=== PATIENT | female | born 1990 | race Caucasian/White ===

== ENCOUNTER 2022-03-21 17:01 | Emergency (ER) | payer BC ==
[2022-03-21 17:22] VITALS: BP 128/76; PULSE 79
[2022-03-21 19:10] LABS: ANION GAP 10.2 mEq/L (7-13); CHLORIDE,CL 103 mmol/L (98-107); SODIUM,NA 137 mmol/L (136-145)
[2022-03-21 19:13] LABS: ESTIMATED GFR 119 mL/min (>=60)
== END 2022-03-21 20:39 | disposition home or self-care (01) ==
LOC: DL.ED 17:01
DX: O99.891 Other specified diseases and conditions complicating pregnancy (principal); R07.89 Other chest pain; Z3A.16 16 weeks gestation of pregnancy; Z20.822 Contact with and (suspected) exposure to COVID-19
CPT/HCPCS: 36415; 71045; 80053; 82150; 83605; 83690; 83735; 84443; 84484; 85025; 86140; 93005; 99285; U0002

== ENCOUNTER 2022-08-30 00:15 | Inpatient (IN) | payer BC ==
[2022-08-30] MEDS ORDERED: Acetaminophen 325 MG Tab PO PRN ×2 (09:38)
[2022-08-30] MEDS ORDERED: Sodium Chloride 0.9% 10 ML Syringe FLUSH PRN (09:38)
[2022-08-30] MEDS ORDERED: Methylergonovine 0.2 MG/1 ML Amp IM PRN (09:38)
[2022-08-30] MEDS ORDERED: Lidocaine 1% 30 ML SDV INJECT PRN (09:38)
[2022-08-30] MEDS ORDERED: Carboprost Tromethamine 250 MCG/1 ML Amp IM PRN (09:38)
[2022-08-30] MEDS ORDERED: Tranexamic Acid 1,000 MG in Sodium Chloride 0.9% 100 ML IV PRN (09:38)
[2022-08-30] MEDS ORDERED: Lactated Ringers 1,000 ML IV ONE (09:38)
[2022-08-30] MEDS ORDERED: Misoprostol 400 MCG (4 X 100 MCG TAB) RECTAL PRN (09:38)
[2022-08-30] MEDS ORDERED: Ondansetron 4 MG/2 ML SDV IVPUSH PRN (09:38)
[2022-08-30] MEDS ORDERED: Misoprostol 50 MCG (1/2 of 100 MCG) Tab VAG PRN (09:38)
[2022-08-30] MEDS ORDERED: Ropivacaine 200 MG in Premix Bag 1 BAG EPIDUR SCH (09:45)
[2022-08-30] MEDS ORDERED: Phenylephrine HCl In 0.9% NaCl 1 MG/10 ML Syringe IVPUSH PRN (09:45)
[2022-08-30] MEDS ORDERED: ePHEDrine 50 MG/ML SDV IVPUSH PRN (09:45)
[2022-08-30] MEDS ORDERED: Oxytocin/Normal Saline 30 UNIT/500 ML BAG IV SCH (09:45)
[2022-08-30] MEDS: Lactated Ringers 1,000 ML IV SCH (16:10)
[2022-08-30] MEDS: Misoprostol 25 MCG (1/4 of 100 MCG) Tab VAG PRN (16:53)
[2022-08-30] MEDS: Sodium Chloride 0.9% 10 ML Syringe FLUSH SCH (21:00)
[2022-08-30] MEDS: Oxytocin/Normal Saline 30 UNIT/500 ML BAG IV SCH (22:39)
[2022-08-31] MEDS ORDERED: hydrOXYzine HCl 25 MG Tab PO ONE ×2 (04:19→22:30)
[2022-08-31] MEDS: Misoprostol 25 MCG (1/4 of 100 MCG) Tab VAG PRN ×5 (05:45→22:41)
[2022-08-31] MEDS: Sodium Chloride 0.9% 10 ML Syringe FLUSH SCH ×2 (09:41→22:40)
[2022-09-01] MEDS: Lactated Ringers 1,000 ML IV SCH ×2 (04:48→19:35)
[2022-09-01] MEDS: Misoprostol 25 MCG (1/4 of 100 MCG) Tab VAG PRN (07:31)
[2022-09-01] MEDS: Sodium Chloride 0.9% 10 ML Syringe FLUSH SCH ×2 (09:00→21:00)
[2022-09-01] MEDS: Oxytocin/Normal Saline 30 UNIT/500 ML BAG IV SCH (13:11)
[2022-09-01] MEDS ORDERED: Bupivacaine 0.25% 10 ML SDV ONE (22:19)
[2022-09-01] MEDS ORDERED: fentaNYL 100 MCG/2 ML SDV ONE (22:19)
[2022-09-01] MEDS ORDERED: Phenylephrine HCl In 0.9% NaCl 1 MG/10 ML Syringe ONE (22:20)
[2022-09-01] MEDS ORDERED: ePHEDrine 50 MG/ML SDV ONE (22:20)
[2022-09-01] MEDS ORDERED: Phenylephrine HCl In 0.9% NaCl 1 MG/10 ML Syringe IVPUSH PRN (22:46)
[2022-09-01] MEDS ORDERED: ePHEDrine 50 MG/ML SDV IVPUSH PRN (22:46)
[2022-09-01] MEDS ORDERED: Ropivacaine 200 MG in Premix Bag 1 BAG EPIDUR SCH (23:00)
[2022-09-02] MEDS ORDERED: Ondansetron 4 MG/2 ML SDV ONE (04:41)
[2022-09-02] MEDS ORDERED: Dexamethasone 4 MG/ML SDV ONE (04:42)
[2022-09-02] MEDS ORDERED: Ketorolac 30 MG/ML SDV ONE (04:42)
[2022-09-02] MEDS ORDERED: Phenylephrine HCl In 0.9% NaCl 1 MG/10 ML Syringe ONE (04:42)
[2022-09-02] MEDS ORDERED: Oxytocin 10 Units/1 ML SDV ONE (04:42)
[2022-09-02] MEDS ORDERED: Lidocaine 2% with EPINEPHrine 1:200,000 20 ML SDV ONE (04:43)
[2022-09-02] MEDS ORDERED: SODIUM CHLORIDE 0.9% IV ONE (05:17)
[2022-09-02] MEDS ORDERED: ceFAZolin 2 GM Vial IV ONE (05:17)
[2022-09-02] MEDS ORDERED: ceFAZolin 2 GM Vial ONE (05:17)
[2022-09-02] MEDS ORDERED: Ketorolac 30 MG/ML SDV IVPUSH ONE (05:17)
[2022-09-02] MEDS ORDERED: Misoprostol 400 MCG (4 X 100 MCG TAB) ONE (05:17)
[2022-09-02] MEDS ORDERED: Tranexamic Acid 1,000 MG/10 ML Vial ONE (05:17)
[2022-09-02] MEDS ORDERED: OXYTOCIN IV ONE (05:17)
[2022-09-02] MEDS ORDERED: Ondansetron 4 MG/2 ML SDV IV ONE (05:17)
[2022-09-02] MEDS ORDERED: fentaNYL 100 MCG/2 ML SDV IV ONE (05:17)
[2022-09-02] MEDS ORDERED: Oxytocin 10 Units/1 ML SDV IV ONE (05:17)
[2022-09-02] MEDS ORDERED: Lidocaine 2% with EPINEPHrine 1:200,000 20 ML SDV INJECT ONE (05:17)
[2022-09-02] MEDS ORDERED: Dexamethasone 4 MG/ML SDV IV ONE (05:17)
[2022-09-02] MEDS ORDERED: Phenylephrine HCl In 0.9% NaCl 1 MG/10 ML Syringe IV ONE (05:17)
[2022-09-02] MEDS ORDERED: Morphine PF 10 MG/10 ML SDV IV ONE (05:17)
[2022-09-02] MEDS ORDERED: Bupivacaine 0.25% 10 ML SDV INJECT ONE (05:17)
[2022-09-02] MEDS ORDERED: Sodium Chloride 0.9% 100 ML ONE (05:19)
[2022-09-02] MEDS ORDERED: Oxytocin/Normal Saline 30 UNIT/500 ML BAG ONE (05:32)
[2022-09-02] MEDS: Lactated Ringers 1,000 ML IV SCH ×3 (06:11→22:27)
[2022-09-02] MEDS ORDERED: Acetaminophen/oxyCODONE 325-5 MG Tab PO PRN ×3 (06:21→06:27)
[2022-09-02] MEDS ORDERED: Ondansetron 4 MG/2 ML SDV IVPUSH PRN ×2 (06:21→06:27)
[2022-09-02] MEDS ORDERED: Methylergonovine 0.2 MG/1 ML Amp IM PRN ×2 (06:21→06:27)
[2022-09-02] MEDS ORDERED: ePHEDrine 50 MG/ML SDV IVPUSH PRN ×2 (06:21→06:27)
[2022-09-02] MEDS ORDERED: Tranexamic Acid 1,000 MG in Sodium Chloride 0.9% 100 ML IV PRN ×2 (06:21→06:27)
[2022-09-02] MEDS ORDERED: diphenhydrAMINE 50 MG/ML SDV IVPUSH PRN ×2 (06:21→06:27)
[2022-09-02] MEDS ORDERED: Carboprost Tromethamine 250 MCG/1 ML Amp IM PRN ×2 (06:21→06:27)
[2022-09-02] MEDS ORDERED: Ibuprofen 800 MG Tab PO PRN (06:21)
[2022-09-02] MEDS ORDERED: Acetaminophen 325 MG Tab PO PRN ×2 (06:21→06:27)
[2022-09-02] MEDS ORDERED: Misoprostol 400 MCG (4 X 100 MCG TAB) RECTAL PRN ×2 (06:21→06:27)
[2022-09-02] MEDS ORDERED: Naloxone 2 MG/2 ML Syringe IVPUSH PRN ×2 (06:21→06:27)
[2022-09-02] MEDS ORDERED: Docusate Sodium 100 MG Cap PO PRN (06:27)
[2022-09-02] MEDS ORDERED: Lactated Ringers 1,000 ML IV SCH (06:30)
[2022-09-02] MEDS ORDERED: Ketorolac 30 MG/ML SDV IVPUSH SCH (06:30)
[2022-09-02] MEDS: Oxytocin/Normal Saline 30 UNIT/500 ML BAG IV SCH (06:40)
[2022-09-02] MEDS ORDERED: Simethicone 80 MG Tab.Chew PO SCH (09:00)
[2022-09-02] MEDS ORDERED: Prenatal Multivitamin with Calcium/Folic Acid/Iron Tab PO SCH (09:00)
[2022-09-02] MEDS: Simethicone 80 MG Tab.Chew PO SCH ×4 (09:54→21:39)
[2022-09-02] MEDS: Ketorolac 30 MG/ML SDV IVPUSH SCH ×3 (11:43→23:45)
[2022-09-02] MEDS: Ferrous Sulfate 325 MG Tab PO SCH (11:44)
[2022-09-02] MEDS: Prenatal Multivitamin with Calcium/Folic Acid/Iron Tab PO SCH (11:44)
[2022-09-02] MEDS: Docusate Sodium 100 MG Cap PO PRN (11:44)
[2022-09-02] MEDS: ceFAZolin 1 GM Vial IVPUSH SCH ×2 (12:58→21:37)
[2022-09-03] MEDS: ceFAZolin 1 GM Vial IVPUSH SCH (07:22)
[2022-09-03] MEDS ORDERED: ceFAZolin 1 GM Vial IVPUSH SCH (07:30)
[2022-09-03] MEDS: Ferrous Sulfate 325 MG Tab PO SCH (08:57)
[2022-09-03] MEDS: Prenatal Multivitamin with Calcium/Folic Acid/Iron Tab PO SCH (08:57)
[2022-09-03] MEDS: Simethicone 80 MG Tab.Chew PO SCH ×4 (08:57→22:09)
[2022-09-03] MEDS: Docusate Sodium 100 MG Cap PO PRN ×2 (08:57→22:09)
[2022-09-03] MEDS: Acetaminophen/oxyCODONE 325-5 MG Tab PO PRN ×4 (09:28→22:08)
[2022-09-03] MEDS: Ibuprofen 800 MG Tab PO PRN ×2 (13:15→22:09)
[2022-09-04] MEDS: Acetaminophen/oxyCODONE 325-5 MG Tab PO PRN ×2 (06:23→11:01)
[2022-09-04] MEDS: Ibuprofen 800 MG Tab PO PRN (06:24)
[2022-09-04] MEDS: Ferrous Sulfate 325 MG Tab PO SCH (07:58)
[2022-09-04] MEDS: Docusate Sodium 100 MG Cap PO PRN (07:58)
[2022-09-04] MEDS: Simethicone 80 MG Tab.Chew PO SCH ×2 (07:59→13:40)
[2022-09-04] MEDS: Prenatal Multivitamin with Calcium/Folic Acid/Iron Tab PO SCH (07:59)
[2022-09-04 12:57] VITALS: BP 142/81; PULSE 79
== END 2022-09-04 14:05 | disposition home or self-care (01) | DRG 540 ==
LOC: DL.OB 05:24 → OBSVTOIN 09-02 05:24
PROVIDERS: ADMIT Family Medicine; ATTEND Family Medicine
PROC: 10D00Z1 Extraction of Products of Conception, Low, Open Approach (ICD-10-PCS; principal; 2022-09-02)
PROC: 3E0P7VZ Introduction of Hormone into Female Reproductive, Via Natural or Artificial Opening (ICD-10-PCS; 2022-09-02)
PROC: 3E033VJ Introduction of Other Hormone into Peripheral Vein, Percutaneous Approach (ICD-10-PCS; 2022-09-02)
PROC: 10907ZC Drainage of Amniotic Fluid, Therapeutic from Products of Conception, Via Natural or Artificial Opening (ICD-10-PCS; 2022-09-02)
DX: O13.4 Gestational [pregnancy-induced] hypertension without significant proteinuria, complicating childbirth (principal); O99.52 Diseases of the respiratory system complicating childbirth; J45.909 Unspecified asthma, uncomplicated; O99.12 Other diseases of the blood and blood-forming organs and certain disorders involving the immune mechanism complicating childbirth; D69.6 Thrombocytopenia, unspecified; R12 Heartburn; K59.00 Constipation, unspecified; O42.02 Full-term premature rupture of membranes, onset of labor within 24 hours of rupture; O76 Abnormality in fetal heart rate and rhythm complicating labor and delivery; O99.892 Other specified diseases and conditions complicating childbirth; O99.62 Diseases of the digestive system complicating childbirth; O99.214 Obesity complicating childbirth; O62.1 Secondary uterine inertia; Z37.0 Single live birth; Z79.82 Long term (current) use of aspirin; Z79.51 Long term (current) use of inhaled steroids; Z3A.39 39 weeks gestation of pregnancy
CPT/HCPCS: 01961; 01967; 36415; 51702; 82565; 82570; 82947; 84156; 84450; 84460; 84520; 85027; 85049; A9270-GY; J0690; J1885; J2405; J2590; J2795; J3490; J7120

== ENCOUNTER 2022-10-04 06:04 | Emergency (ER) | payer BC ==
[2022-10-04 06:23] VITALS: BP 126/79; PULSE 61
[2022-10-04 07:28] LABS: BASOPHILS PERCENT AUTO 0.2 % (0.0-1.0); HEMATOCRIT 40.9 % (37.0-47.0); HEMOGLOBIN 13.4 g/dL (12.0-16.0); LYMPHOCYTES PERCENT AUTO 9.9 % (20.5-50.1); MEAN CORPUSCULAR HEMOGLOBIN 27.1 pg (27.0-34.0); MEAN CORPUSCULAR HGB CONC 32.8 g/dL (33.0-35.0); MEAN CORPUSCULAR VOLUME 82.6 fL (80-100); MONOCYTES PERCENT AUTO 5.5 % (2-8); NEUTROPHILS PERCENT AUTO 83.4 % (42.2-75.2); PLATELET COUNT,PLT 185 10^3/uL (150-450); RED BLOOD CELL COUNT 4.95 10^6/uL (4.2-5.4)
[2022-10-04 07:50] LABS: HCG QUALITATIVE,SERUM NEGATIVE (NEGATIVE)
[2022-10-04 07:53] LABS: LACTIC ACID 1.3 mmol/L (0.4-2.0)
[2022-10-04 07:59] LABS: A/G RATIO 1.1; ALANINE AMINOTRANSFERASE,ALT 40 U/L (14-59); ALBUMIN 3.6 g/dL (3.4-5.0); ALKALINE PHOSPHATASE 141 U/L (46-116); AMYLASE 39 U/L (25-115); ANION GAP 10.9 mEq/L (7-13); ASPARTATE AMNIOTRANSFERASE,AST 44 U/L (15-37); BILIRUBIN TOTAL 1.7 mg/dL (0.2-1.0); BLOOD UREA NITROGEN,BUN 11 mg/dL (7-18); BUN/CREATININE RATIO 12.1 (No establ ref range); C-REACTIVE PROTEIN 1.3 mg/dL (0.0-0.9); CALCIUM 8.8 mg/dL (8.5-10.1); CARBON DIOXIDE,CO2 28 mmol/L (21-32); CHLORIDE,CL 102 mmol/L (98-107); CREATININE 0.91 mg/dL (0.55-1.02); EST CRCL DRUG DOSING (CG) 84.71 mL/min; GLUCOSE RANDOM 124 mg/dL (70-99); LIPASE 111 U/L (73-393); MAGNESIUM 1.9 mg/dL (1.8-2.4); POTASSIUM,K 3.9 mmol/L (3.5-5.1); SODIUM,NA 137 mmol/L (136-145); TSH ULTRASENSITIVE 1.26 uIU/mL (0.36-3.74)
[2022-10-04 08:00] LABS: ESTIMATED GFR 85 mL/min (>=60)
[2022-10-04 08:40] LABS: AMPHETAMINES,URINE NEGATIVE (NEGATIVE); BARBITURATES,URINE NEGATIVE (NEGATIVE); BENZODIAZEPINE,URINE NEGATIVE (NEGATIVE); MDMA (ECSTASY), URINE NEGATIVE (NEGATIVE); METHADONE,URINE NEGATIVE (NEGATIVE); METHAMPHETAMINES,URINE NEGATIVE (NEGATIVE); OPIATES,URINE NEGATIVE (NEGATIVE); OXYCODONE,URINE NEGATIVE (NEGATIVE); PHENCYCLIDINE,URINE NEGATIVE (NEGATIVE); TCA,URINE NEGATIVE (NEGATIVE)
[2022-10-04 08:42] LABS: APPEARANCE,URINE CLEAR (CLEAR); BILIRUBIN,URINE NEGATIVE (NEGATIVE); COLOR,URINE YELLOW (YELLOW); GLUCOSE,URINE NEGATIVE (NEGATIVE); KETONES,URINE NEGATIVE (NEGATIVE); LEUKOCYTE ESTERASE,URINE TRACE (NEGATIVE); NITRITE,URINE NEGATIVE (NEGATIVE); OCCULT BLOOD,URINE TRACE-INTACT (NEGATIVE); PH,URINE 6.5 (5.0-9.0); PROTEIN,URINE NEGATIVE (NEGATIVE); UROBILINOGEN,URINE 0.2 mg/dL (0.2-1.0)
[2022-10-04 09:03] LABS: BACTERIA,URINE FEW /HPF (0-FEW/HPF); EPITHELIAL CELLS,URINE FEW /HPF (NOT SEEN); RBC,URINE 0-5 /HPF (0-5)
[2022-10-04] MEDS ORDERED: Lactated Ringers 1,000 ML IV ONE (10:50)
[2022-10-04] MEDS ORDERED: Ondansetron 4 MG/2 ML SDV IVPUSH ONE (10:50)
[2022-10-04] MEDS ORDERED: Piperacillin/Tazobactam 3.375 GM in Sodium Chloride 0.9% 100 ML IV ONE (10:51)
[2022-10-04] MEDS ORDERED: Iopamidol 612 MG/ML 100 ML Bottle IVPUSH ONE (11:30)
== END 2022-10-04 12:00 ==
LOC: DL.ED 06:04
DX: O99.63 Diseases of the digestive system complicating the puerperium (principal); K80.00 Calculus of gallbladder with acute cholecystitis without obstruction
CPT/HCPCS: 36415; 71045; 74177; 76705; 80053; 80305; 81001; 82150; 83605; 83690; 83735; 84443; 84484; 84703; 85025; 86140; 87086; 93010; 96361; 96374; 96375; 99284; 99285; J2405; J2543; J3490; J7120; Q9967

== ENCOUNTER 2024-10-03 19:06 | Emergency (ER) | payer BC ==
[2024-10-03] MEDS ORDERED: HYDROmorphone 0.5 MG/0.5 ML Syringe IM ONE (19:25)
[2024-10-03] MEDS: Ondansetron 4 MG/2 ML SDV IVPUSH ONE (19:38)
[2024-10-03] MEDS: Ketorolac 30 MG/ML SDV IVPUSH ONE (19:40)
[2024-10-03] MEDS ORDERED: Sodium Chloride 0.9% 10 ML Syringe FLUSH PRN (19:42)
[2024-10-03] MEDS ORDERED: Sodium Chloride 0.9% 1,000 ML IV ONE (19:42)
[2024-10-03 19:47] LABS: BASOPHILS PERCENT AUTO 0.3 % (0.0-1.0); EOSINOPHILS PERCENT AUTO 1.6 % (1.0-3.0); HEMATOCRIT 43.4 % (37.0-47.0); HEMOGLOBIN 14.5 g/dL (12.0-16.0); LYMPHOCYTES PERCENT AUTO 29.2 % (20.5-50.1); MEAN CORPUSCULAR HEMOGLOBIN 28.3 pg (27.0-34.0); MEAN CORPUSCULAR HGB CONC 33.4 g/dL (33.0-35.0); MEAN CORPUSCULAR VOLUME 84.6 fL (80-100); MONOCYTES PERCENT AUTO 7.3 % (2-8); NEUTROPHILS PERCENT AUTO 61.6 % (42.2-75.2); PLATELET COUNT,PLT 230 10^3/uL (150-450); RED BLOOD CELL COUNT 5.13 10^6/uL (4.2-5.4); WHITE BLOOD CELL COUNT,WBC 11.9 10^3/uL (5.0-10.0)
[2024-10-03 19:51] LABS: APPEARANCE,URINE CLEAR (CLEAR); BILIRUBIN,URINE NEGATIVE (NEGATIVE); COLOR,URINE YELLOW (YELLOW); GLUCOSE,URINE NEGATIVE (NEGATIVE); KETONES,URINE NEGATIVE (NEGATIVE); LEUKOCYTE ESTERASE,URINE NEGATIVE (NEGATIVE); NITRITE,URINE NEGATIVE (NEGATIVE); OCCULT BLOOD,URINE NEGATIVE (NEGATIVE); PH,URINE 5.5 (5.0-9.0); PROTEIN,URINE NEGATIVE (NEGATIVE); UROBILINOGEN,URINE 0.2 mg/dL (0.2-1.0)
[2024-10-03] MEDS: Sodium Chloride 0.9% 1,000 ML IV ONE (19:54)
[2024-10-03 19:57] LABS: A/G RATIO 1.1; ALBUMIN 4.1 g/dL (3.4-5.0); ANION GAP 11.7 mEq/L (7-13); BUN/CREATININE RATIO 14.4 (No establ ref range); CALCIUM 9.5 mg/dL (8.5-10.1); CREATININE 1.04 mg/dL (0.55-1.02); EST CRCL DRUG DOSING (CG) 72.72 mL/min; POTASSIUM,K 3.7 mmol/L (3.5-5.1)
[2024-10-03] MEDS: Take Home: Cyclobenzaprine 10 MG Tab, 4 Tab Pack PO ONE (21:51)
[2024-10-03 21:58] VITALS: BP 131/80; PULSE 80
== END 2024-10-03 21:56 | disposition home or self-care (01) ==
LOC: DL.ED 19:06
DX: M62.830 Muscle spasm of back (principal); Z79.899 Other long term (current) drug therapy
CPT/HCPCS: 36415; 74176; 80053; 81003; 81025; 83690; 85025; 96374; 96375; 99284; A9270; J1885; J2405; J7030